=== PATIENT | male | born 1975 | race Caucasian/White ===

== ENCOUNTER 2018-01-14 10:52 | Outpatient (CLI) | payer OTHER | END 2018-01-14 10:53 | disposition home or self-care (01) | LOC: NS 10:52 | PROVIDERS: ATTEND Specialist | DX: Z71.3 Dietary counseling and surveillance (principal); E11.9 Type 2 diabetes mellitus without complications; E78.1 Pure hyperglyceridemia; Z79.84 Long term (current) use of oral hypoglycemic drugs; Z68.35 Body mass index [BMI] 35.0-35.9, adult | CPT/HCPCS: 97802 ==

== ENCOUNTER 2018-05-15 20:59 | Outpatient (CLI) | payer OTHER ==
[2018-05-15 21:35] LABS: ALBUMIN 4.6 g/dL (3.2-5.5); ALBUMIN/GLOBULIN RATIO 1.4 (1.0-2.2); ALKALINE PHOSPHATASE 77 IU/L (42-121); ALT ALANINE AMINOTRANSFERASE 76 IU/L (10-60); AST ASPARTATE AMINOTRANSFERASE 46 IU/L (10-42); BILIRUBIN,TOTAL 1.2 mg/dL (0.2-1.0); BUN - BLOOD UREA NITROGEN 17 mg/dL (6-20); CALCIUM 9.3 mg/dL (8.5-10.3); CARBON DIOXIDE - CO2 28 mmol/L (21-32); CHLORIDE 100 mmol/L (101-111); CHOL/HDL RATIO 5.4 (<5.0); CHOLESTEROL 196 mg/dL; GFR - MDRD 81 (>89); GLUCOSE 125 mg/dL (70-100); HDL CHOLESTEROL 36 mg/dL; SODIUM 136 mmol/L (135-145)
[2018-05-15 21:49] LABS: HB2 TOTAL 18.5 g/dL; HEMOGLOBIN A1C 0.78 g/dL
[2018-05-15 21:58] LABS: LDL CHOLESTEROL,DIRECT 77 mg/dL; LDLD/HDL RATIO 2.1 (<3.6)
--- NOTE | 2018-05-16 09:35 | Ultrasound Report ---
Procedure Date: 05/15/2018 Accession Number: [id number] / [id number] Procedure: US - Abdomen Limited CPT Code: FULL RESULT: EXAM: Abdomen Limited DATE: 05/15/2018 9:47 PM CLINICAL HISTORY: RIGHT UPPER QUADRANT PAIN COMPARISON: None. TECHNIQUE: Real-time scanning was performed with static images obtained. FINDINGS: The liver is enlarged, measuring 21 cm. Hepatic echogenicity is diffusely increased, compatible with fatty infiltration. No focal parenchymal lesion or intrahepatic biliary dilatation is seen. The common bile duct measures 5 mm. The gallbladder demonstrates cholelithiasis. No wall thickening or pericholecystic fluid is present. The right kidney measures 11.5 cm, and demonstrates no hydronephrosis. No free fluid. IMPRESSION: Cholelithiasis, without evidence of acute cholecystitis or biliary obstruction. Fatty infiltration of the liver. RADIA
== END 2018-05-15 21:00 | disposition home or self-care (01) ==
LOC: DI 20:59
PROVIDERS: ATTEND Family Medicine
DX: R10.11 Right upper quadrant pain (principal); K80.20 Calculus of gallbladder without cholecystitis without obstruction; K76.0 Fatty (change of) liver, not elsewhere classified; E11.9 Type 2 diabetes mellitus without complications
CPT/HCPCS: 36415; 76705; 80053; 80061; 83036; 83721

== ENCOUNTER 2019-01-13 10:57 | Day surgery (SDC) | payer OTHER ==
[~2019-01-13 10:57] MED LIST: BUPIVACAINE 0.5% PF 30 ML VIAL ONE; BUPIVACAINE 0.5%-EPI 1:200000 PF 30 ML VIAL SUBQ ONE
[2019-01-13] MEDS ORDERED: INSULIN REGULAR HUMAN 100 UNIT/1 ML 10 ML MDV SUBQ ONE (10:58)
[2019-01-13] MEDS ORDERED: LACTATED RINGERS 1,000 ML IV ONE ×2 (11:07→13:56)
--- NOTE | 2019-01-13 11:17 | ANESTHESIA ---
Pre-Anesthesia VS, & Labs - Diagnosis symptomatic cholelithiasis - Procedure laparoscopic cholecystectomy Vital Signs: Temp Pulse Resp BP Pulse Ox 37.3 C 67 12 153/104 H 98 01/13/19 11:04 01/13/19 11:04 01/13/19 11:04 01/13/19 11:04 01/13/19 11:04 Height 6 ft 1 in Weight (kg) 114.3 kg - NPO >8 hours Home Medications and Allergies Home Medications: Ambulatory Orders Atorvastatin Calcium 20 mg PO QPM 12/30/18 Calcium Carbonate [Tums (Calcium Carbonate 500mg)] 500 mg PO PRN PRN 12/30/18 Chlorhexidine Gluconate [Peridex] 15 ml MM ONCE 12/30/18 Fluticasone Propionate [Flovent Diskus] 2 spray IH DAILY PRN 12/30/18 Lisinopril 5 mg PO DAILY 12/30/18 Naproxen Sodium [Aleve] 220 mg PO BID PRN 12/30/18 Omeprazole 40 mg PO DAILY 12/30/18 metFORMIN [Glucophage] 1,000 mg PO BIDWM 12/30/18 Atorvastatin Calcium 20 mg PO QPM 12/30/18 Calcium Carbonate [Tums (Calcium Carbonate 500mg)] 500 mg PO PRN PRN 12/30/18 Chlorhexidine Gluconate [Peridex] 15 ml MM ONCE 12/30/18 Fluticasone Propionate [Flovent Diskus] 2 spray IH DAILY PRN 12/30/18 Lisinopril 5 mg PO DAILY 12/30/18 Naproxen Sodium [Aleve] 220 mg PO BID PRN 12/30/18 Omeprazole 40 mg PO DAILY 12/30/18 metFORMIN [Glucophage] 1,000 mg PO BIDWM 12/30/18 Allergies/Adverse Reactions: Allergies Allergy/AdvReac Type Severity Reaction Status Date / Time cinnamon AdvReac Hives Verified 12/30/18 14:08 egg AdvReac "chemical Verified 12/30/18 14:08 reaction in brain that inhibits Dopamine" Penicillins AdvReac Unknown Verified 12/30/18 14:09 Anes History & Medical History - Anesthetic History Anesthesia Complications: reports: Other-see comment (anesthesia has not worked in the past) Family history of Malignant Hyperthermia: Denies (mother went into a coma with anesthesia) - Medical History Cardiovascular: reports: Hypertension, High cholesterol Pulmonary: reports: Other Gastrointestinal: reports: GERD, Cholelithiasis, Other Urinary: reports: None Musculoskeletal: reports: Chronic back pain Endocrine/Autoimmune: reports: Type 2 diabetes Skin: reports: None Exam General: Alert, Oriented x3, Cooperative, No acute distress Dental: WNL Mouth Openin Fingerbreadth Neck Mobility: Normal Mallampati classification: II Thyromental Distance: 4-6 cm Respiratory: Lungs clear, Normal breath sounds, No respiratory distress, No accessory muscle use Cardiovascular: Regular rate, Normal S1, Normal S2, No murmurs Mental/Cognitive Status: Alert/Oriented X3, Normal for patient Cognitive Status: Within normal limits Plan Anesthesia Type: General Consent for Procedure(s) Verified and Reviewed: Yes Code Status: Attempt Resuscitation ASA classification: 2-Mild systemic disease Is this case an emergency?: No
[2019-01-13] MEDS ORDERED: cefOXitin 2 GM VIAL IV ONE (11:23)
[2019-01-13] MEDS ORDERED: INSULIN REGULAR HUMAN 100 UNIT/1 ML 10 ML MDV ONE ×2 (12:01→14:27)
[2019-01-13] MEDS ORDERED: ROCURONIUM 50 MG/5 ML VIAL IVP ONE (13:12)
[2019-01-13] MEDS ORDERED: fentaNYL 250 MCG/5 ML VIAL IVP ONE (13:12)
[2019-01-13] MEDS ORDERED: PROPOFOL 200 MG/20 ML VIAL IVP ONE (13:12)
[2019-01-13] MEDS ORDERED: LIDOCAINE-MPF 2% 5 ML VIAL IM ONE (13:12)
[2019-01-13] MEDS ORDERED: KETOROLAC 30 MG/ML VIAL IVP ONE (13:12)
[2019-01-13] MEDS ORDERED: NEOSTIGMINE 1 MG/1 ML 10 ML MDV IVP ONE (13:12)
[2019-01-13] MEDS ORDERED: ONDANSETRON 4 MG/2 ML VIAL IVP ONE (13:12)
[2019-01-13] MEDS ORDERED: GLYCOPYRROLATE 1 MG/5 ML VIAL IVP ONE (13:12)
[2019-01-13] MEDS ORDERED: BUPIVACAINE 0.5%-EPI 1:200000 PF 30 ML VIAL SUBQ ONE (13:39)
[2019-01-13] MEDS ORDERED: ONDANSETRON 4 MG/2 ML VIAL IVP PRN (14:17)
[2019-01-13] MEDS ORDERED: HYDROcod/ACETAM 5/325 MG TABLET PO PRN (14:17)
[2019-01-13] MEDS ORDERED: HYDROmorphone 0.5 MG/0.5 ML SYRINGE IVP PRN (14:17)
--- NOTE | 2019-01-13 14:22 | OPERATIVE REPORT ---
Operative Report - General Procedure Date: 01/13/19 Planned Procedure: Laparoscopic cholecystectomy, possible open cholecystectomy, possible intraoperative cholangiogram, possible common bile duct exploration Pre-Op Diagnosis: Symptomatic cholelithiasis Procedure Performed: Laparoscopic cholecystectomy Post Op Diagnosis: Same - Procedure Note Primary Surgeon: Jordan Doss MD Anesthesia Provider: Jonathan Cox CRNA Anesthesia Technique: General ET tube, Local (30 mL of half percent Marcaine) IV Fluids (mL): 1,000 Estimated Blood Loss (mL): 10 Drain/Tube Type: Other (None.) Complications: None. - Other Other Information/Narrative: OPERATIVE DESCRIPTION/REPORT: After verbal and written informed consent was obtained detailing the risks of infection, bleeding requiring transfusion with its risks, nerve injury, and , as well as the possibility of a colostomy, and after I met with the patient confirming the surgery, the patient was brought to the operative suite and placed supine on the operating table. Great care was taken to avoid pressure points to prevent pressure necrosis or nerve injury. Monitoring devices were applied along with TEDs and pneumatic compressive stockings (to prevent DVT). The patient received preoperative antibiotics for surgical prophylaxis. Dr. Jordan Franco and then Jonathan Cox CRNA sedated and anesthetized the patient for the entire procedure. The patient was prepped and draped in the usual sterile manner. A "time in" then confirmed that the patient was identified with 3 identifiers (name, date and medical record number), the history and physical was in the chart, the signed consent confirming the procedure was in the chart, the patient was in the correct position, the aforementioned prophylactic measures were in place or given, we had the correct personnel and equipment to complete the procedure and that anesthesia, surgery and nursing were given an opportunity to express any concerns. With the agreement of everyone in the room, we proceeded with the operation. The initial incision was at the umbilicus and dissection to the linea alba was completed using blunt dissection. The linea alba was grasped with a Viki and incised. In a similar manner the peritoneum was grasped and incised using Metzenbaum scissors. In this location, a 12 mm blunt tipped, balloon tipped port was placed and the balloon was inflated to keep the port in position. The abdominal cavity was insufflated with carbon dioxide to steady-state pressure of 15 mmHg. Three additional 5 mm ports were placed in standard location for laparoscopic cholecystectomy (subxiphoid and 2 right subcostal) under direct vision of the 30 degree laparoscope and without incident. The patient was then placed in reverse Trendelenburg position and was rotated slightly to their left. The gallbladder fundus was grasped with an atraumatic grasper. Multiple adhesions had to be taken down by blunt and sharp dissection along with electrocautery. Eventually, we identified the infundibulum, and this was then grasped and retracted inferior and laterally. Dissection was then begun in the angle of Calot. The cystic duct and (slightly medially and posteriorly) cystic artery were clearly identified. The critical view was obtained. Two clips proximally and one clip distally were used to control both the cystic duct and cystic artery. The clips were carefully placed to avoid occluding the juncture with the common bile duct. Both the cystic duct and then the cystic artery were then transected with laparoscopic karolina. The gallbladder was then removed from its fossa in a retrograde fashion using electrocautery. With the 30 degree 5 mm scope in the subxiphoid position, the gallbladder was placed in an EndoCatch bag to be extracted through the 12 mm port site. I irrigated the right upper quadrant with a liter of warm sterile saline, and the area was aspirated dry. I inspected the gallbladder fossa and there was no bleeding or bile leak. Clips on the cystic duct and cystic artery appeared to be secure. I briefly visually explored the abdomen. There was no other evidence of overt pathology. I injected the port sites at the peritoneal, fascial, and skin levels under direct vision with 0.5% Marcaine. All ports and the EndoCatch containing the gallbladder were removed. Following gallbladder removal, the remaining carbon dioxide was expelled from the abdomen. The fascia at the umbilicus was reapproximated using 2 [id number] 0 Vicryl sutures. The skin at each port site was approximated using a subcuticular 4-0 M onocryl. The surgical count of instruments, needles and sponges was reported as correct twice. Mastisol, Steri-Strips and sterile surgical dressings were applied. The patient was then awakened from anesthesia, extubated, and having tolerated the procedure well, was transported to the recovery room. No complications were encountered. A "time out" confirmed the operation performed, the fluids given, the estimated blood loss and anesthesia, surgery and nursing were given an opportunity to express any concerns. Enzoon disclaimer: This document was created in part using voice recognition technology. Because of the inherent limitations of the system ([employer]'s Dragon Dictate user manual states that the licensee understands that speech recognition is a statistical process and that recognition errors are inherent in the process), occasional same sounding word substitutions and grammatical errors do occur and persist despite proofreading. Please read this document for context.
[2019-01-13] MEDS: LABETALOL 20 MG/4 ML SYRINGE IVP ONE ×2 (14:38→14:42)
[2019-01-13] MEDS: ACETAMINOPHEN 1,000 MG/100 ML 100 ML IV ONE ×2 (14:39→15:00)
[2019-01-13] MEDS ORDERED: ONDANSETRON 4 MG/2 ML VIAL ONE (16:17)
[2019-01-13 16:20] VITALS: BP 145/98
== END 2019-01-13 10:58 | disposition home or self-care (01) ==
LOC: SDS 10:57
PROVIDERS: ATTEND Surgery
PROC: 0FT44ZZ Resection of Gallbladder, Percutaneous Endoscopic Approach (ICD-10-PCS; principal; 2019-01-13 12:15)
DX: K80.20 Calculus of gallbladder without cholecystitis without obstruction (principal); K76.0 Fatty (change of) liver, not elsewhere classified; I10 Essential (primary) hypertension; E11.9 Type 2 diabetes mellitus without complications; E66.9 Obesity, unspecified; Z68.34 Body mass index [BMI] 34.0-34.9, adult; Z87.891 Personal history of nicotine dependence; K21.9 Gastro-esophageal reflux disease without esophagitis
CPT/HCPCS: 47562; 93005; J0131; J1815; J3010; J7120

== ENCOUNTER 2023-06-01 11:11 | Outpatient (CLI) | payer OTHER ==
--- NOTE | 2023-06-01 12:54 | Ultrasound Report ---
PROCEDURE: Bladder INDICATIONS: NOCTURIA TECHNIQUE: Real-time scanning was performed of the kidneys and bladder, with image documentation. COMPARISON: None FINDINGS: Bladder: Pre-void bladder volume is 222.5 mL. Post-void residual is 12.9 mL. Pre-void images demon strate no intraluminal masses or stones. On pre-void images, bilateral ureteral jets are noted with color Doppler interrogation. (Of note, ureteral jets may not be detectable in up to 25% of cases due to insufficient differences in specific gravity between ureteral and bladder urine). Miscellaneous: No free pelvic fluid. IMPRESSION: Normal sonographic evaluation of the urinary bladder. Reviewed by: Seth Correa MD on 06/01/2023 11:53 AM ALTAGRACIA Approved by: Seth Correa MD on 06/01/2023 11:53 AM ALTAGRACIA Station ID: [id number]
== END 2023-06-01 11:12 | disposition home or self-care (01) ==
LOC: DI 11:11
PROVIDERS: ATTEND Physician Assistant
DX: R39.9 Unspecified symptoms and signs involving the genitourinary system (principal); R35.1 Nocturia

== ENCOUNTER 2023-10-24 15:30 | Outpatient (CLI) | payer OTHER ==
--- NOTE | 2023-10-24 16:20 | Sleep Patient Instructions ---
Sleep Center Visit Summary - Patient Visit Information Reason for Visit: Initial consult for evaluation of sleep disordered breathing and other sleep issues. - Patient Instructions Instructions Attached: Sleep Study, Sleep Study Home Monitor Additional Instructions: You will be completing a sleep study, either an in-lab polysomnography (PSG) or home sleep study (HST). You will follow-up in the sleep care office after the sleep study is completed to hear the results and talk about therapy, if needed. You will be called by our office staff to schedule this appointment, but you may contact us with any questions. - Clinic Information Contact: [facility] [address] [place] [id number] [email or web address] T: [phone]
--- NOTE | 2023-10-24 16:27 | SLEEP CARE CONSULTATION ---
Information from patient questionnaire entered by Crystal Pereira. I have reviewed and concur with the information entered by Crystal Pereira. This document represents the service I personally performed and the decisions made by me, Vanna Payton ARNP. History of Present Illness Service Date and Time: 10/24/2023 1530 Reason for Visit: New patient Chief Complaint: reports: Insomnia, Snoring, Fatigue, Frequent awakenings at night Date of Onset: MOST OF MY LIFE Usual bedtime: 10-11PM Time it takes to fall asleep: 30-60MIN Snores at night: Yes Observed to quit breathing while asleep: No Sleeps alone due to snoring: No Number of times waking at night: 2-5 Reasons for waking at night: reports: Choking (occasionally when throat is dry), Snoring, Bathroom Toss, Turn, or Twitch while sleeping: Yes Recalls having dreams: Yes Usually gets out of bed at: 5-7AM Feels refreshed in the morning: No Morning headache: Yes (every day; constantly has a headache) Sleepy or fatigued during the day: Yes Ever fallen asleep while driving: Yes (fallen asleep when driving but no accidents) Takes day naps: No Prior sleep studies: No Additional HPI information: I had the pleasure of seeing ASTON LEAHY today regarding the possibility of him having a sleep disorder. His current complaints are fatigue, frequent night awakenings, insomnia and snoring. He says his doctor is concerned about his frequent night awakening and daytime "exhaustion". He says if he is not doing something he can fall asleep. He says he is not usually able to take a nap because he has is busy with work, taking care of his who is sick and his house. He says he has been told he does not snore but makes a loud "growl that does not stop" by roommates. He says he has had "full blow conversations" when asleep with his and other roommates. He does not remember these conversations. He has woken himself with snoring and if his throat gets dry has had some choking sensations but this is not often. He says he has a constant headache and it is normally there in the morning. 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 Patient is and lives in [place]. Have you smoked in the past 12 months: No Cigarettes per day (20/pack): 10 Years of smokin Quit date: 2009 Smoking Pack Years: 12.5 Alcohol use: No Caffeine use: No Family History Family history of sleep disordered breathing: Yes Family Hx Sleep Apnea: Father: Snoring Allergies and Home Medications Known drug allergies: No Drug allergies reviewed: Yes Home medication list reviewed: Yes Allergy and home medication list: Allergies cinnamon Adverse Reaction (Verified 10/23/23 11:35) Hives egg Adverse Reaction (Verified 10/23/23 11:35) "chemical reaction in brain that inhibits Dopamine" Penicillins Adverse Reaction (Verified 10/23/23 11:35) Unknown family history of coma, told to never take it Home Medications Medication Instructions Recorded Confirmed Last Taken Type Atorvastatin Calcium 20 mg PO QPM 12/30/18 10/24/23 Unknown History Omeprazole 40 mg PO DAILY 12/30/18 10/24/23 Unknown History lisinopriL [Lisinopril] 5 mg PO DAILY 12/30/18 10/24/23 Unknown History metFORMIN [Glucophage] 1,000 mg PO BIDWM 12/30/18 10/24/23 Unknown History Fenofibrate Nanocrystallized See Rx Instructions .ROUTE .COMPLEX 10/24/23 10/24/23 Unknown History [Tricor] Glipizide [Glipizide Xl] See Rx Instructions .ROUTE .COMPLEX 10/24/23 10/24/23 Unknown History Review of Systems Cardiovascular: reports: high blood pressure Gastrointestinal: reports: heartburn, diarrhea Urinary: reports: frequency Neurological: reports: headaches Psychiatric: reports: anxiety, depression, mood disorder Ear/Nose/Throat: reports: nasal congestion, sinus problems, dry mouth/throat, wisdom teeth removed. denies: tonsillectomy Endocrine: reports: sluggishness, excessive thirst Immunologic: reports: sneezing Physical Exam Vital signs obtained and entered by: CRYSTAL Sagastume MA Blood Pressure: 149/102 (LEFT ARM) Cuff size: regular Heart Rate: 92 O2 Saturation: 97 Height: 6 ft 1 in Weight: 260 lb Body Mass Index: 34.2 BMI Classification: Obese Neck circumference: 19 Mouth and throat: narrow oropharynx Soft palate: long Hard palate: normal Uvula: normal Uvula visualization: 25% Mallampati Class III Tongue: enlarged in size with teeth levy on lateral edges Tonsils: small Neck: normal w/o lymphadenopathy or thyromegaly Heart: regular rate and rhythm Lungs: clear bilaterally Impression and Plan 1. Suspected Obstructive Sleep Apnea-Hypopnea Syndrome, as suggested by a history of loud and irregular snoring, morning headache, frequent awakening during the night, unrefreshed sleep, cognitive impairment, and excessive daytime sleepiness. Narrow oropharynx and obesity are common predisposing factors for obstructive sleep apnea-hypopnea syndrome. I recommend proceeding to polysomnography to confirm the diagnosis and to assess severity. If the patient has significant sleep disordered breathing, a manual CPAP titration study will also be performed to find the optimal treatment pressure. I informed the patient of what the sleep studies involve and after some discussion, obtained agreement to proceed. The pathophysiology of obstructive sleep apnea-hypopnea syndrome was discussed with the patient and health risks of cardiovascular and cerebrovascular disease if not treated. 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 Patient agreed to plan. * Schedule polysomnography. * Avoid long distance driving or driving when feeling sleepy. * Avoid alcohol, sedative and muscle relaxant around bedtime. * Attempt to lose weight. * Review instructions provided by trained office staff on how to prepare for the sleep study. * Return for follow-up after sleep study completed. Counseling Topics: Weight loss health impact Plan: PSG Visit Type: In Office Time Spent with Patient (minutes): 32 Provider Statement: I spent 100% of the Face to Face Visit with the patient with greater than 50% spent counseling the patient and coordination of care.
[2023-10-24 16:33] VITALS: BP 149/102; O2SAT 97
== END 2023-10-24 15:31 | disposition home or self-care (01) ==
LOC: SC 15:30
PROVIDERS: ATTEND Nurse Practitioner Family
DX: G47.10 Hypersomnia, unspecified (principal); R06.83 Snoring; R51.9 Headache, unspecified; G47.8 Other sleep disorders; R41.89 Other symptoms and signs involving cognitive functions and awareness; E66.9 Obesity, unspecified; Z68.34 Body mass index [BMI] 34.0-34.9, adult; R53.83 Other fatigue; G47.00 Insomnia, unspecified; Z87.891 Personal history of nicotine dependence
CPT/HCPCS: 99203; 99212

== ENCOUNTER 2023-12-03 14:02 | Outpatient (CLI) | payer OTHER | END 2023-12-03 14:03 | disposition home or self-care (01) | LOC: SC 14:02 | PROVIDERS: ATTEND Nurse Practitioner Family | DX: G47.33 Obstructive sleep apnea (adult) (pediatric) (principal); R09.02 Hypoxemia; E66.9 Obesity, unspecified; Z68.34 Body mass index [BMI] 34.0-34.9, adult | CPT/HCPCS: 95806 ==

== ENCOUNTER 2023-12-18 13:29 | Outpatient (CLI) | payer OTHER ==
--- NOTE | 2023-12-18 13:31 | SLEEP CARE CONSULTATION ---
Information from patient questionnaire entered by Irene Pereira. I have reviewed and concur with the information entered by Irene Pereira. This document represents the service I personally performed and the decisions made by , Vanna Payton ARNP. History of Present Illness Service Date and Time: 12/18/2023 1340 Initial [place] Sleepiness Scale score: 16 (10/24/23) Current [place] Sleepiness Scale score: 11 (12/18/23) Additional HPI information: ASTON LEAHY returns via video appointment for follow up and results of the recently performed home sleep study. The sleep study showed very severe obstructive sleep apnea with an average AHI of 78.9 and rosario oxygen saturation of 52%. I explained the pathophysiology behind obstructive sleep apnea. We then spent quite a bit of time discussing different treatment options. For mild obstructive sleep apnea, surgery and oral appliance are alternatives to nasal CPAP therapy but in moderate or severe cases, nasal CPAP is the most effective and reliable treatment. I reviewed the impact of weight changes on sleep apnea and strongly recommended losing weight. After some discussion, the patient will be started on nasal CPAP therapy. A manual titration study will be ordered to find optimal pressure with office adjustments. Patient was cautioned about risks of drowsy driving until sleepiness symptoms resolve. Sleep Study - Results Type of Sleep Study: Home sleep study (COMPLETED 12/03/23) Prior sleep studies: No Polysomnography/Home Sleep Study results: Physician Impression: The quality of the study is good. The length of the study is adequate (> 240 minutes). Please also see the tabulated and graphic data. 1. Obstructive Sleep Apnea-Hypopnea (ICD-10 G47.33), very severe, with an AHI of 78.9/hr and rosario SaO2 of 52%. During the study, the patient had 614 apneas (614 obstructive, 0 central, 0 mixed) and 87 hypopneas. The longest episode lasted 78.0 seconds. The patient only slept supine during this study (supine AHI was 78.9 and non-supine, 0.00). 2. Hypoxemia (ICD-10 R09.02), severe, with the lowest oxygen saturation of 52 % and 218.7 minutes with SaO2 under 90%. Baseline oxygen saturation was low (Average oxygen saturation was 89%). Allergies and Home Medications Known drug allergies: Yes (as listed) Drug allergies reviewed: Yes Home medication list reviewed: Yes (Jardiance) Allergy and home medication list: Allergies cinnamon Adverse Reaction (Verified 12/16/23 11:32) Hives egg Adverse Reaction (Verified 12/16/23 11:32) "chemical reaction in brain that inhibits Dopamine" Penicillins Adverse Reaction (Verified 12/16/23 11:32) Unknown family history of coma, told to never take it Review of Systems Review of systems same as previous: Yes (NO CHANGE) Physical Exam Vital signs obtained and entered by: IRENE Sagastume MA Height: 6 ft 1 in (PER PT) Weight: 250 lb (PER PT) Body Mass Index: 33.0 BMI Classification: Obese Impression and Plan 1. Obstructive Sleep Apnea-Hypopnea Syndrome, very severe, with lowest oxygen saturation of 52%. Obviously this is the cause of the patients symptoms of unrefreshed sleep, and excessive daytime sleepiness. Positive pressure therapy could benefit hypertension, diabetes, mood disorder and gastric reflux. As mentioned above, the patient will be started on nasal autoCPAP therapy. A manual titration study will be completed to find optimal treatment pressure with office adjustments. Compliance guidelines also reviewed. 2. Hypoxemia, severe, with a rosario oxygen saturation of 52% and 218.7 minutes spent under 90%. The baseline oxygen saturation was low normal with an average oxygen saturation of 89%. 3. Obesity, unspecified. Currently patients BMI is 33. Obesity increases the risk of apnea, CPAP pressure requirements and overall health risks especially cardiovascular and diabetes. Thus patient is advised to lose weight. * Titration study * Attempt to lose weight. * Avoid alcohol consumption near bedtime. * Avoid supine sleep until using CPAP. * The patient is again cautioned about driving until sleepiness completely resolves. * Return after titration study to set up with PAP machine Counseling Topics: Weight loss health impact Visit Type: Telehealth Video Video Type: Doximity Patient Location: Home Location of Provider: Office Patient agrees and consents to this telehealth visit type: Yes Patient agrees to have their insurance billed: Yes Time Spent with Patient (minutes): 16 Provider Statement: I spent 100% of the Telehealth Video Call with the patient with greater than 50% spent counseling the patient and coordination of care.
== END 2023-12-18 13:30 | disposition home or self-care (01) ==
LOC: SC 13:29
PROVIDERS: ATTEND Nurse Practitioner Family
DX: G47.33 Obstructive sleep apnea (adult) (pediatric) (principal); R09.02 Hypoxemia; E66.9 Obesity, unspecified; Z68.33 Body mass index [BMI] 33.0-33.9, adult
CPT/HCPCS: 99442

== ENCOUNTER 2024-01-31 19:31 | Outpatient (CLI) | payer OTHER | END 2024-01-31 19:32 | disposition home or self-care (01) | LOC: SC 19:31 | PROVIDERS: ATTEND Nurse Practitioner Family | DX: G47.33 Obstructive sleep apnea (adult) (pediatric) (principal) | CPT/HCPCS: 95811 ==

== ENCOUNTER 2024-02-21 14:47 | Outpatient (CLI) | payer OTHER ==
--- NOTE | 2024-02-21 15:34 | Sleep Patient Instructions ---
Sleep Center Visit Summary - Patient Visit Information Reason for Visit: Titration study follow-up - Patient Instructions Additional Instructions: You were here for follow up of the titration study. You are being started on CPAP therapy with pressure setting at 6-10 cmH2O. You will need to call the sleep care office to set up your follow up once you have your CPAP machine to check compliance and response to therapy at that time. You may call the office with any concerns about pressure feeling too low or too much for adjustment, if needed. You should contact DME supplier for any questions or concerns about mask or equipment. Please call office to schedule a follow up appointment in the sleep care office one month after obtaining new device. - Clinic Information Contact: [facility] [address] [place] [address] [email or web address] T: [phone]
--- NOTE | 2024-02-21 15:40 | SLEEP CARE CONSULTATION ---
Information from patient questionnaire entered by Crystal Pereira. I have reviewed and concur with the information entered by Crystal Pereira. This document represents the service I personally performed and the decisions made by , Vanna Payton ARNP. History of Present Illness Service Date and Time: 02/21/2024 1447 Initial Rutherford Sleepiness Scale score: 16 (10/24/23) Current Rutherford Sleepiness Scale score: 14 (02/21/24) Additional HPI information: ASTON Cruz LEAHY returns for follow up of the sleep study with a manual CPAP titration study performed on 01/31/2024. Previous study done on 12/03/23 showed very severe obstructive sleep apnea with AHI 78.9. The patient was informed of the following polysomnography findings: CPAP was initiated at 6 cmH2O and titrated up to CPAP at 12 cmH2O. CPAP at 8 cmH2O appeared to be optimal (AHI of 4.1 per hour on the pressure). There was supine sleep on the pressure. Oxygen saturation was minimally low. Lower CPAP settings allowed a few residual respiratory events during REM sleep. The patient appeared to have tolerated positive airway pressure therapy fairly well. I explained how CPAP machine works and what to expect when using the machine. Using CPAP every night in order to get used to it was emphasized. Patient advised to put CPAP mask on before getting into bed so as not to fall asleep without CPAP. To assist acclimation to CPAP use, it could also be used for a short time during day while reading or watching TV. The patient was instructed to call the CPAP supplier to discuss any mechanical problem that may occur. If the mask given is uncomfortable or is difficult to keep on through the night even with adjustment, contact the CPAP supplier as many will replace with another mask style if notified before 30 days. If snoring or perceives is not getting enough air or too much air from the machine, notify this office. Patient counseled not drink alcohol less than 4 hours before bedtime as it can increase snoring and apnea. Patient was cautioned about risks of drowsy driving until sleepiness symptoms resolve. Patient denies drowsy driving. Sleep Study - Results Type of Sleep Study: Home sleep study (COMPLETED 12/03/23 TITRATION STUDY COMPLETED 01/31/24) Prior sleep studies: No Polysomnography/Home Sleep Study results: IMPRESSION: The quality of the study is good. CPAP was initiated at 6 cmH2O and titrated up to CPAP at 12 cmH2O. CPAP at 8 cmH2O appeared to be optimal (AHI of 4.1 per hour on the pressure). There was supine sleep on the pressure. Oxygen saturation was minimally low. Lower CPAP settings allowed a few residual respiratory events during REM sleep. The patient appeared to have tolerated positive airway pressure therapy fairly well. The patients sleep efficiency was reduced due to several awakenings during the night. The sleep architecture was abnormal for reduced amount of time spent in REM and slow wave sleep (N3). There was no significant periodic leg movement of sleep. Cardiac rhythm was normal sinus rhythm without significant arrhythmia. No abnormal behavior (parasomnia) observed during the night. Allergies and Home Medications Known drug allergies: Yes (as listed) Drug allergies reviewed: Yes Home medication list reviewed: Yes (Jardiance) Allergy and home medication list: Allergies cinnamon Adverse Reaction (Verified 12/18/23 13:05) Hives egg Adverse Reaction (Verified 12/18/23 13:05) "chemical reaction in brain that inhibits Dopamine" Penicillins Adverse Reaction (Verified 12/18/23 13:05) Unknown family history of coma, told to never take it Review of Systems Review of systems same as previous: No (NO CHANGE) Physical Exam Vital signs obtained and entered by: CRYSTAL Sagastume MA Blood Pressure: 131/89 (LEFT ARM) Cuff size: regular Heart Rate: 69 O2 Saturation: 99 Height: 6 ft 1 in (PER PT) Weight: 255 lb Body Mass Index: 33.6 BMI Classification: Obese Impression and Plan 1. Obstructive Sleep Apnea-Hypopnea Syndrome, very severe. Patient returns to office after titration study to be set up with CPAP therapy. His optimal pressure was noted to be 8 cm H2O during the night of the study. A pressure setting of 6-10 cmH2O was also listed as appropriate. Patient advised that positive pressure therapy could benefit hypertension, diabetes, mood disorder and gastric reflux. The patient will be started on nasal autoCPAP therapy with pressure set at 6-10 cmH2O. Compliance guidelines also reviewed. A copy of compliance guidelines will be given for reference at check out. Patient instructed to call the office to make follow-up appointment for his compliance visit. He may call here with any issues with the pressure or his DME supplier for issues with machine or supplies. He voiced understanding. 2. Obesity, unspecified. Currently patients BMI is 33.6. Obesity increases the risk of apnea, CPAP pressure requirements and overall health risks especially cardiovascular and diabetes. Thus patient is advised to lose weight. * Nasal auto CPAP therapy, pressure at 6-10 cm H2O. * Attempt to lose weight. * Avoid alcohol consumption near bedtime. * The patient is again cautioned about driving until sleepiness completely resolves. * Return one month after CPAP obtained. I will assess response to therapy and compliance at that time. Counseling Topics: Weight loss health impact Prescriptions: Auto CPAP Visit Type: In Office Time Spent with Patient (minutes): 22 Provider Statement: I spent 100% of the Face to Face Visit with the patient with greater than 50% spent counseling the patient and coordination of care.
[2024-02-21 15:45] VITALS: BP 131/89; O2SAT 99
== END 2024-02-21 14:48 | disposition home or self-care (01) ==
LOC: SC 14:47
PROVIDERS: ATTEND Nurse Practitioner Family
DX: G47.33 Obstructive sleep apnea (adult) (pediatric) (principal); E66.9 Obesity, unspecified; Z68.33 Body mass index [BMI] 33.0-33.9, adult
CPT/HCPCS: 99212; 99213

== ENCOUNTER 2024-07-16 13:48 | Outpatient (CLI) | payer OTHER ==
--- NOTE | 2024-07-16 14:43 | CT Report ---
PROCEDURE: Head WO INDICATIONS: FACIAL WEAKNESS TECHNIQUE: Noncontrast 4.5 mm thick angled axial sections acquired from the foramen magnum to the vertex. For r adiation dose reduction, the following was used: automated exposure control, adjustment of mA and/or kV according to patient size. COMPARISON: None. FINDINGS: Image quality: Excellent. CSF spaces: Basal cisterns are patent. No extra-axial fluid collections. Ventricles are normal in size and shape. Brain: No midline shift. No intracranial masses or hemorrhage. Rahman-white matter interface is norm al. Skull and face: Calvarium and visualized facial bones are intact, without suspicious lesions. Sinuses: Visualized sinuses and mastoids are clear. IMPRESSION: No acute intracranial pathology. Reviewed by: Tj Bartholomew MD on 07/16/2024 2:41 PM PDT Approved by: Tj Bartholomew MD on 07/16/2024 2:41 PM PDT Station ID: [id number]
== END 2024-07-16 13:49 | disposition home or self-care (01) ==
LOC: DI 13:48
PROVIDERS: ATTEND Student in an Organized Health Care Education/Training Program
DX: R29.810 Facial weakness (principal)